=== PATIENT | female | born 1960 | race African-American/Black ===

== ENCOUNTER 2017-02-22 06:35 | Day surgery (SDC) | payer BC ==
[~2017-02-22 06:35] MED LIST: CIPROFLOXACIN500 M1 PO; NAPROSYN500 MG OR; NEURONTIN300 MG PO; NEXIUM40 M1 PO; NO CURRENT MEDS; PERI-COLACE1 TAB PO; PROAIR HFA IN; ROBITUSSI2 OR; SYMBICORT1 AE1 IN; ZPAK OR; ZPAK PO
[2017-02-22 09:04] VITALS: BP 103/69
== END 2017-02-22 09:30 | disposition home or self-care (01) | DRG 951 ==
LOC: ENDO 06:35
PROVIDERS: ATTEND Surgery
PROC: 0DBP8ZX Excision of Rectum, Via Natural or Artificial Opening Endoscopic, Diagnostic (ICD-10-PCS; principal; 2017-02-22)
DX: Z12.11 Encounter for screening for malignant neoplasm of colon (principal); J44.9 Chronic obstructive pulmonary disease, unspecified; D12.8 Benign neoplasm of rectum; Z85.118 Personal history of other malignant neoplasm of bronchus and lung; Z92.21 Personal history of antineoplastic chemotherapy; Z92.3 Personal history of irradiation; Z90.2 Acquired absence of lung [part of]

== ENCOUNTER 2019-04-20 14:06 | Emergency (ER) | payer BC ==
[~2019-04-20] VITALS: Ht 172.7 cm; Wt 65.0 kg
[~2019-04-20 14:06] MED LIST changes: +LEVOFLOXACIN250 M1 PO; +MEDDOSEPAK PO
[2019-04-20 15:23] LABS: URINE BILIRUBIN - DIPSTICK NEGATIVE (NEGATIVE); URINE BLOOD DIPSTICK NEGATIVE (NEGATIVE); URINE COLOR YELLOW; URINE GLUCOSE - DIPSTICK NEGATIVE (NEGATIVE); URINE KETONE NEGATIVE (NEGATIVE); URINE LEUK ESTERASE NEGATIVE (NEGATIVE); URINE NITRITE - DIPSTICK NEGATIVE (Negative); URINE PH 5.5 (4.5-8.0); URINE PROTEIN - DIPSTICK NEGATIVE (NEG-TRACE); URINE SPECIFIC GRAVITY <=1.005; URINE UROBILINOGEN - DIPSTICK 0.2 E.U./dL (0.2)
[2019-04-20 15:24] LABS: HEMATOCRIT 43.2 % (37.0-47.0); HEMOGLOBIN 14.2 g/dl (12.0-16.0); IMMATURE GRANULOCYTES 0.3 % (0.0-5.0); MEAN CELL VOLUME 91.9 fL CALC (80.0-100.0); MEAN CORPUSCULAR HGB 30.2 pG CALC (26.0-32.0); MEAN CORPUSCULAR HGB CONC 32.9 g/L CALC (32.0-36.0); NEUT# 5.8 thou/uL (2.00-7.15); RED BLOOD COUNT 4.7 mill/uL (4.20-5.60); RED CELL DISTRI WIDTH 12.6 % (11.5-15.5)
[2019-04-20 15:34] LABS: BARBITURATES NEGATIVE (NEGATIVE); COCAINE NEGATIVE (NEGATIVE); METHADONE NEGATIVE (NEGATIVE); OXCYCODONE POSITIVE (NEGATIVE); TETRAHYDROCANNABIONOL NEGATIVE (NEGATIVE); TRICYLIC ANTIDEPRESSANTS NEGATIVE (NEGATIVE)
[2019-04-20 15:52] LABS: ALBUMIN 5.2 g/dL (3.2-5.0); ALKALINE PHOSPHATASE 95 u/l (38-126); ANION GAP 14 (6-22 (CALC)); BUN 13 mg/dL (7-17); BUN/CREATININE RATIO 13 (12-20 (CALC)); CARBON DIOXIDE 29 mmol/l (22-30); CHLORIDE 107 mmol/l (95-108); ETHYL ALCOHOL 0 mg/dl (0-30); GFR 57 ML/MIN (>=60 (CALC)); GFR FOR AFR.AMER. > 60 ML/MIN (>=60 (CALC)); POTASSIUM 4.2 mmol/l (3.5-5.1); SGOT/AST 27 u/l (14-36); SODIUM 146 mmol/l (137-146); TOTAL PROTEIN 8.4 g/dL (6.3-8.2)
[2019-04-20 15:57] LABS: BILIRUBIN, TOTAL 0.7 mg/dL (0.0-1.4)
[2019-04-20 17:22] VITALS: BP 120/74
== END 2019-04-20 17:31 | disposition home or self-care (01) | DRG 312 ==
LOC: ED 14:06
DX: R55 Syncope and collapse (principal); R25.2 Cramp and spasm

== ENCOUNTER 2019-06-15 02:44 | Emergency (ER) | payer BC ==
[~2019-06-15] VITALS: Ht 172.7 cm; Wt 65.0 kg
[2019-06-15] MEDS ORDERED: OXYCODONE5 MG PO (03:12)
[2019-06-15 03:25] LABS: HEMOGLOBIN 13.7 g/dl (12.0-16.0); IMMATURE GRANULOCYTES 1.9 % (0.0-5.0); MEAN CELL VOLUME 91.9 fL CALC (80.0-100.0); MEAN CORPUSCULAR HGB 29.3 pG CALC (26.0-32.0); MEAN CORPUSCULAR HGB CONC 31.9 g/L CALC (32.0-36.0); NEUT# 6.18 thou/uL (2.00-7.15); RED BLOOD COUNT 4.68 mill/uL (4.20-5.60)
[2019-06-15 03:37] LABS: ALBUMIN 4.4 g/dL (3.2-5.0); ALKALINE PHOSPHATASE 69 u/l (38-126); ANION GAP 12 (6-22 (CALC)); BUN 15 mg/dL (7-17); BUN/CREATININE RATIO 14 (12-20 (CALC)); CARBON DIOXIDE 29 mmol/l (22-30); CHLORIDE 103 mmol/l (95-108); CREATININE 1.1 mg/dL (0.5-1.0); GFR 51 ML/MIN (>=60 (CALC)); GFR FOR AFR.AMER. > 60 ML/MIN (>=60 (CALC)); POTASSIUM 3.7 mmol/l (3.5-5.1); SGOT/AST 21 u/l (14-36); SODIUM 141 mmol/l (137-146); TOTAL PROTEIN 7.3 g/dL (6.3-8.2)
[2019-06-15 03:39] LABS: BILIRUBIN, TOTAL 0.4 mg/dL (0.0-1.4)
[2019-06-15 03:50] LABS: MYOGLOBIN 39 ng/mL (0 - 62)
[2019-06-15 06:12] VITALS: BP 113/59
[2019-06-15 06:37] LABS: URINE BILIRUBIN - DIPSTICK NEGATIVE (NEGATIVE); URINE BLOOD DIPSTICK TRACE-INTACT (NEGATIVE); URINE COLOR YELLOW; URINE GLUCOSE - DIPSTICK NEGATIVE (NEGATIVE); URINE KETONE NEGATIVE (NEGATIVE); URINE LEUK ESTERASE NEGATIVE (NEGATIVE); URINE NITRITE - DIPSTICK NEGATIVE (Negative); URINE PH 7.5 (4.5-8.0); URINE PROTEIN - DIPSTICK NEGATIVE (NEG-TRACE); URINE SPECIFIC GRAVITY <=1.005; URINE UROBILINOGEN - DIPSTICK 0.2 E.U./dL (0.2)
== END 2019-06-15 06:22 | disposition home or self-care (01) | DRG 313 ==
LOC: ED 02:44
PROVIDERS: Emergency Medicine
DX: R07.9 Chest pain, unspecified (principal); Z85.118 Personal history of other malignant neoplasm of bronchus and lung
CPT/HCPCS: Q9967

== ENCOUNTER 2019-08-22 02:25 | Emergency (ER) | payer SELFPAY ==
[~2019-08-22] VITALS: Ht 172.7 cm; Wt 65.0 kg
[~2019-08-22 02:25] MED LIST changes: +OXYCODONE5 MG PO
[2019-08-22 03:34] LABS: HEMATOCRIT 42.5 % (37.0-47.0); HEMOGLOBIN 13.7 g/dl (12.0-16.0); MEAN CORPUSCULAR HGB CONC 32.2 g/L CALC (32.0-36.0); NEUT# 6.24 thou/uL (2.00-7.15); RED BLOOD COUNT 4.57 mill/uL (4.20-5.60); RED CELL DISTRI WIDTH 13.4 % (11.5-15.5)
[2019-08-22 03:48] LABS: ALBUMIN 4.3 g/dL (3.2-5.0); ALKALINE PHOSPHATASE 65 u/l (38-126); AMYLASE 116 u/l (30-110); ANION GAP 11 (6-22 (CALC)); BILIRUBIN, TOTAL 0.5 mg/dL (0.0-1.4); BUN 23 mg/dL (7-17); BUN/CREATININE RATIO 17 (12-20 (CALC)); CARBON DIOXIDE 31 mmol/l (22-30); CHLORIDE 101 mmol/l (95-108); CREATININE 1.4 mg/dL (0.5-1.0); GFR 38 ML/MIN (>=60 (CALC)); GFR FOR AFR.AMER. 47 ML/MIN (>=60 (CALC)); LIPASE 56 u/l (23-300); SGOT/AST 22 u/l (14-36); SODIUM 139 mmol/l (137-146); TOTAL PROTEIN 7.6 g/dL (6.3-8.2)
[2019-08-22 04:00] LABS: MYOGLOBIN 60 ng/mL (0 - 62)
[2019-08-22 04:17] VITALS: BP 108/75
== END 2019-08-22 04:17 | disposition home or self-care (01) | DRG 392 ==
LOC: ED 02:25
PROVIDERS: Family Medicine
DX: K21.9 Gastro-esophageal reflux disease without esophagitis (principal); R07.89 Other chest pain

== ENCOUNTER 2022-05-03 00:17 | Emergency (ER) | payer MEDICARE ==
[~2022-05-03] VITALS: Ht 172.7 cm; Wt 63.6 kg
[2022-05-03 00:33] VITALS: BP 122/70
[2022-05-03] MEDS ORDERED: STERAPRED DS10 MG PO (00:35)
== END 2022-05-03 00:45 | disposition home or self-care (01) ==
LOC: ED 00:17
DX: L25.9 Unspecified contact dermatitis, unspecified cause (principal)